=== PATIENT | female | born 1935 | race Two or more races ===

== ENCOUNTER 2019-10-04 17:47 | Emergency (ER) | payer OTHER ==
[~2019-10-04] VITALS: Ht 167.6 cm; Wt 70.8 kg
[2019-10-04] MEDS ORDERED: KAPSPARGO SPRIN25 MG (18:36)
[2019-10-04] MEDS ORDERED: SYNTHROID50 MCG (18:36)
[2019-10-04] MEDS ORDERED: SIMVASTATIN 20 MG (18:37)
[2019-10-04] MEDS ORDERED: ATACAND32 MG (18:38)
[2019-10-04] MEDS ORDERED: FOSAMAX70 MG (18:39)
[2019-10-04] MEDS ORDERED: VITAMIN D35000 UNI2 (18:39)
[2019-10-04] MEDS ORDERED: PLAVIX75 MG (18:40)
== END 2019-10-04 23:58 | disposition home or self-care (01) ==
LOC: ER 17:47
DX: D64.89 Other specified anemias (principal); D72.828 Other elevated white blood cell count; R51 Headache; R91.1 Solitary pulmonary nodule

== ENCOUNTER 2020-12-23 10:41 | Inpatient (IN) | payer OTHER ==
[~2020-12-23] VITALS: Ht 182.9 cm; Wt 5.0 kg
[~2020-12-23 10:41] MED LIST: ATACAND32 MG; FOSAMAX70 MG; KAPSPARGO SPRIN25 MG; PLAVIX75 MG; SIMVASTATIN 20 MG; SYNTHROID50 MCG; VITAMIN D35000 UNI2
[2020-12-23] MEDS ORDERED: SIMVASTATIN5 MG PO (10:53)
--- NOTE | 2020-12-23 10:53 | NUR ---
PACIENTE ALERTA Y ORIENTADA EN ROSA JUAN ESFERAS, REFIERE HEMOGLOBINA EN 7.0 POR UN CBC REALIZADO EN ENERO 26. PACIENTE NIEGA SANGRADO.
--- NOTE | 2020-12-23 12:24 | NUR ---
SE EJECUTA ORDEN MEDICA EN BAEZ TOTALIDAD, PACIENTE AL MOMENTO SE ORIENTA SOBRE LAS ACCIONES A REALIZAR. SE BECKY MUESTRAS DE JM SE REALIZA ADMINISTRACION DE TERAPI INTRAVENOSA POR ORDEN MEIDCA Y EKG. SE MANTIENE A PACIENTE EN OBSERVACION POR CAMBIOS EN CONDICION Y CONTINUIDAD DE GORGE.
--- NOTE | 2020-12-23 14:18 | NUR ---
SE EJECUTA ORDEN MEDICA EN BAEZ TOTALIDAD, PACIENTE CON ORDENES DE ADMINISTRACION DE 3 UNIDADES DE PRBC FRACCIONADAS PARA TRANFUNDIR. PACIENTE CON VALOR DE HGB EN 7.2 Y HEMATOCRITO 2N 21.1. SE REALIZA MUESTRAS DE JM PARA HANNAH TUBOS PILOTOS Y SE REALIZA REQUISICION DE JM PARA LAS 3 UNIDADES FRACCIONADAS. LAS MISMA SON LLEVADAS A BANCO DE JM Y SE ENTREGAN A SR. GOLDEN. PACIENTE CUENTA EN EL EXPEDIENTE CON PERMISO PARA TRANFUNDIR UNIDADES Y COPIAS DE OJAS DE QUEQUISICION DE JM. SE ORIENTA A PACIENTE SOBRE LAS ORDENES MEDICAS Y PACIENTE REFIERE ENTENDER LA IMPORTANCIA DEL TRATAMIEMTO ORDENADO. AL MOMENTO LA MISMA NO REFIERE QUEJA ALGUNA Y QUEDA EN ESPERA DE CONSULTA POR MEDICO DE MEDICINA INTERNA. SE ORIENTA A PACIENTE EN GORGE DE NECESIDAD ACUDIR POR PERSONAL DE ENFERMERIA PARA ASISTENCIA. SE MANTIENE A LA MISMA EN OBSERVACION POR CAMBIOS EN CONDICION Y CONTUNIDAD DE GORGE.
--- NOTE | 2020-12-23 15:08 | NUR ---
PTE ALERTA Y ORIENTADA X 3 ESFERAS EN ROMY CON BARANDAS ELEVADAS,SIN FAMILIAR AL MOMENTO DE LA DEREK,NO REFIERE DOLOR AL MOMENTO,AREAS DE VENPUNCION PATENTE Y CHETAN DE EDEMA CON FLUIDOS DE MANTENIMIENTO,PENDIENTE A TRANSFUNDIR 3 UNIDADES PRBC FRACC NO DISPONIBLE.PERMISO DE TRANSFUSION FIRMADO Y EN RECORD.
--- NOTE | 2020-12-23 16:05 | NUR ---
SE LLAMA A BANCO DE JM Y SE HABLA A SOBRE UNIDADES DE JM PENDIENTE, EL REFIERE QUE AL MOMENTO LAS UNIDADES NO ESTA DISPONIBLE.
[2020-12-26] MEDS ORDERED: CANDESARTAN-HC1 EAC1 (09:19)
== END 2020-12-30 15:07 | disposition home or self-care (01) | DRG 812 ==
LOC: ER 10:41 → SEC-K 16:04 → MEDI 16:04
PROVIDERS: ADMIT Internal Medicine; ATTEND Internal Medicine
PROC: 30233N1 Transfusion of Nonautologous Red Blood Cells into Peripheral Vein, Percutaneous Approach (ICD-10-PCS; principal; 2020-12-25)
DX: D64.9 Anemia, unspecified (principal); D72.829 Elevated white blood cell count, unspecified; E78.5 Hyperlipidemia, unspecified; I25.10 Atherosclerotic heart disease of native coronary artery without angina pectoris; I11.9 Hypertensive heart disease without heart failure; E03.9 Hypothyroidism, unspecified; Z20.822 Contact with and (suspected) exposure to COVID-19

== ENCOUNTER 2021-02-16 12:41 | Inpatient (IN) | payer OTHER ==
[~2021-02-16] VITALS: Ht 167.6 cm; Wt 75.7 kg
[~2021-02-16 12:41] MED LIST changes: +CANDESARTAN-HC1 EAC1; +SIMVASTATIN5 MG PO
== END 2021-02-21 19:23 | disposition home or self-care (01) | DRG 812 ==
LOC: ER 12:41 → MEDI 20:51 → MEDJ 20:51
PROVIDERS: ADMIT Internal Medicine; ATTEND Internal Medicine
PROC: 4A033R1 Measurement of Arterial Saturation, Peripheral, Percutaneous Approach (ICD-10-PCS; principal; 2021-02-16)
PROC: B24BZZZ Ultrasonography of Heart with Aorta (ICD-10-PCS; 2021-02-18)
PROC: 30233N1 Transfusion of Nonautologous Red Blood Cells into Peripheral Vein, Percutaneous Approach (ICD-10-PCS; 2021-02-19)
DX: D64.9 Anemia, unspecified (principal); I20.0 Unstable angina; I10 Essential (primary) hypertension; E78.5 Hyperlipidemia, unspecified; E03.9 Hypothyroidism, unspecified; Z88.6 Allergy status to analgesic agent; F17.210 Nicotine dependence, cigarettes, uncomplicated; J44.9 Chronic obstructive pulmonary disease, unspecified; R50.84 Febrile nonhemolytic transfusion reaction; D72.829 Elevated white blood cell count, unspecified

== ENCOUNTER 2021-03-13 15:24 | Inpatient (IN) | payer OTHER ==
[~2021-03-13] VITALS: Ht 167.6 cm; Wt 79.8 kg
[2021-03-16] MEDS ORDERED: CANDESARTAN-HC1 EAC1 (08:35)
[2021-03-16] MEDS ORDERED: [UNRECOGNIZED DRUG - CODE] (08:35)
[2021-03-16] MEDS ORDERED: CLOPIDOGREL BIS75 MG (08:35)
[2021-03-16] MEDS ORDERED: INTEGRA PLUS C1 EACH PO (16:09)
== END 2021-03-16 18:03 | disposition home or self-care (01) | DRG 812 ==
LOC: ER 15:24 → SEC-K 20:20 → SURG 20:20
PROVIDERS: ADMIT Internal Medicine; ATTEND Internal Medicine
PROC: 30233N1 Transfusion of Nonautologous Red Blood Cells into Peripheral Vein, Percutaneous Approach (ICD-10-PCS; principal; 2021-03-14)
DX: D64.89 Other specified anemias (principal); I10 Essential (primary) hypertension; E78.5 Hyperlipidemia, unspecified; E03.8 Other specified hypothyroidism